=== PATIENT | female | born 1975 | race Caucasian/White ===

== ENCOUNTER 2016-05-10 07:19 | Emergency (ER) | payer OTHER ==
--- NOTE | 2016-05-10 08:27 | ED NURSING NOTES ---
Clinical Report - Nurses [facility] [address] [place] [address] 05/10/2016 7:18 Patient: MANUEL DUGAN TRIAGE Triage time 07:25. Acuity: LEVEL 3. Chief Complaint: ABDOMINAL PAIN and (sneezing). 07:36 05/10/16. Alert. No acute distress. SEPSIS SCREEN: Sepsis Screen. Negative (no infection suspected/documented). Heart rate not greater than 90. Respiratory rate not greater than 20. --07:36 Cathryn White R.N. 07:36 05/10/16. BP: 124/70. HR: 71. RR: 18. O2 saturation: 98%. Temp: 99.3 F. Pain level now 10/05. --07:36 Cathryn White R.N. Weight: 92.9 kg stated. Height/Length: 67 inches Per Patient. BMI: 32.1. --07:30 Cathryn White R.N. Medications CarBAMazepine Oral 200 mg, 3x a day. Ibuprofen Oral 800 mg, PRN. Venlafaxine HCl Oral 225 mg, daily. --07:33 Cathryn White R.N. Effexor XR Oral. --07:33 Cathryn White R.N. Allergies Ancef. Aspirin. Cocaine HCl. Codeine. Inapsine. Iodine. Kefzol. Sulfa Antibiotics. Valium. --07:33 Cathryn White R.N. Medication/allergy information source: the patient. --07:36 Cathryn White R.N. History Arrived by private vehicle. Historian: patient. Primary physician (LISSA jiménez). ( c/o "sneezing a lot" and coughing. States she has been experiencing left side pain since yesterday.). This started yesterday. 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 PAST MEDICAL HX: Last normal menstrual period now. Denies current . SOCIAL HX: Heavy tobacco smoker (cigarette)- 1-2 packs per day. History of drug use: marijuana. No alcohol use. ABUSE ASSESSMENT: Abuse assessment: The patient was asked "Do you feel safe in your home?". No report of abuse. FALL RISK ASSESSMENT: Fall risk assessment completed. No fall risk identified. NUTRITIONAL RISK ASSESSMENT: The nutritional risk assessment revealed no deficiencies. FUNCTIONAL ASSESSMENT: Functional assessment: no impairments noted. LEARNING NEEDS ASSESSMENT: The learning needs assessment revealed no barriers. SKIN INTEGRITY ASSESSMENT: Skin integrity risk assessment completed. No skin integrity risk identified. --07:36 Cathryn White R.N. PROBLEMS: Pilonidal Cyst. Herpes Genitalis. Bronchitis. Lifestyle / Substance Problems. URI. Migraine Headache. Laceration. Last Tetanus. Seizure. Dental Caries. Dental Pain. --07:34 Cathryn White R.N. ADDITIONAL SURGERIES: Cholecystectomy. Cyst in wrist. --07:34 Cathryn White R.N. Interventions ID band on patient. To treatment room. --07:36 Cathryn White R.N. PHYSICAL ASSESSMENT 07:38 05/10/16. Ambulatory to room. GENERAL / NEURO / PSYCH: Oriented X 4. Appears anxious. HEENT: Mucous membranes are pink. RESPIRATORY: Respirations not labored. CVS: Capillary refill less than 2 seconds. GI / : Abdomen soft. ( tenderness to left lateral side of abdomen). SKIN: Skin is warm and dry. --07:38 Cathryn White R.N. NURSING PROGRESS NOTES 07:38 05/10/16. The plan of care for this patient has been created. Patient gowned. Head of bed elevated. Call light placed in reach. Bed placed in lowest position. Brakes of bed on. Patient ready for evaluation- chart flagged. --07:38 Cathryn White R.N. DISPOSITION / DISCHARGE 08:41 05/10/16. Departure time: 0840. Condition at departure: improved and stable. No learning barriers present. Discharge instructions provided and reviewed with the patient. Reviewed medication(s) side effects, precautions, dosing and course information. Prescription(s) given to the patient. Patient verbalized understanding. Written instructions provided in Pakistani. The patient was discharged by the physician. She was discharged home. She left the Emergency Department ambulatory and via private vehicle. Patient driving. --08:41 Cathryn White R.N. 08:40 05/10/16. BP: 127/60. HR: 83. RR: 15. O2 saturation: 97% on room air. Temp: 98.4 F (oral). Pain level now 09/05. --08:41 Cathryn White R.N. Locked/Released at 05/26/2016 9:02 by Saira Ramsey R.N.
--- NOTE | 2016-05-10 08:27 | ED CLINICAL REPORT ---
Clinical Report - Physicians/Mid Levels [facility] [address] [place] [address] 05/10/2016 7:18 Patient: MANUEL DUGAN *This is a preliminary document and is subject to change Time Seen: 07:26; initial patient contact. Arrived- By private vehicle. Historian- patient. HISTORY OF PRESENT ILLNESS Chief Complaint: COUGH. RUNNY NOSE sneezing, eyes irritated. This started yesterday and is still present. It was gradual in onset. The illness is described as mild. The patient has had a cough, nasal congestion, sinus drainage and a nasal discharge. No sputum production, difficulty breathing, chest discomfort or pain or fever. No chills, sore throat, sinus pressure or ear pain. Additional history - No known contact with a sick individual. Similar symptoms previously: None. Recent medical care: Not recently seen/assessed. REVIEW OF SYSTEMS No headache. She has had eye discomfort and hay fever. All systems otherwise negative, except as recorded above. PAST HISTORY Pilonidal Cyst. Herpes Genitalis. Bronchitis. Lifestyle / Substance Problems. URI. Migraine Headache. Laceration. Last Tetanus. Seizure. Dental Caries. Dental Pain. --07:34 Cathryn White R.N. ADDITIONAL SURGERIES: Cholecystectomy. Cyst in wrist. SOCIAL HISTORY Current every day smoker. History of drug use: marijuana. No alcohol use. ADDITIONAL NOTES The nursing notes have been reviewed with agreement regarding the chief complaint, PMH and patient medications and allergies. PHYSICAL EXAM Vital Signs: 05/10/2016 07:36 BP: 124/70. HR: 71. RR: 18. O2 saturation: 98%. Temp: 99.3 F. Have been reviewed as normal. Appearance: Alert. No acute distress. Head: No tenderness to palpation/percussion over the sinuses. Eyes: Mild redness of the right conjunctiva and mild, thin, clear exudate on the right; mild redness of the left conjunctiva and mild, thin, clear exudate on the left. ENT: Mild generalized pharyngeal erythema. Neck: No lymphadenopathy. CVS: Normal heart rate and rhythm. Heart sounds normal. Respiratory: No respiratory distress. Breath sounds normal. Skin: Normal skin color. No rash. Neuro: Oriented X 3. Anthony Nielsen Dr.
--- NOTE | 2016-05-10 08:27 | ED CLINICAL REPORT ---
Clinical Report - Physicians/Mid Levels [facility] [address] [place] [address] 05/10/2016 7:18 Patient: MANUEL DUGAN *This is a preliminary document and is subject to change Time Seen: 07:26; initial patient contact. Arrived- By private vehicle. Historian- patient. HISTORY OF PRESENT ILLNESS Chief Complaint: COUGH. RUNNY NOSE sneezing, eyes irritated. This started yesterday and is still present. It was gradual in onset. The illness is described as mild. The patient has had a cough, nasal congestion, sinus drainage and a nasal discharge. No sputum production, difficulty breathing, chest discomfort or pain or fever. No chills, sore throat, sinus pressure or ear pain. Additional history - No known contact with a sick individual. Similar symptoms previously: None. Recent medical care: Not recently seen/assessed. REVIEW OF SYSTEMS No headache. She has had eye discomfort and hay fever. All systems otherwise negative, except as recorded above. PAST HISTORY Pilonidal Cyst. Herpes Genitalis. Bronchitis. Lifestyle / Substance Problems. URI. Migraine Headache. Laceration. Last Tetanus. Seizure. Dental Caries. Dental Pain. --07:34 Cathryn White R.N. ADDITIONAL SURGERIES: Cholecystectomy. Cyst in wrist. SOCIAL HISTORY Current every day smoker. History of drug use: marijuana. No alcohol use. ADDITIONAL NOTES The nursing notes have been reviewed with agreement regarding the chief complaint, PMH and patient medications and allergies. PHYSICAL EXAM Vital Signs: 05/10/2016 07:36 BP: 124/70. HR: 71. RR: 18. O2 saturation: 98%. Temp: 99.3 F. Have been reviewed as normal. Appearance: Alert. No acute distress. Head: No tenderness to palpation/percussion over the sinuses. Eyes: Mild redness of the right conjunctiva and mild, thin, clear exudate on the right; mild redness of the left conjunctiva and mild, thin, clear exudate on the left. ENT: Mild generalized pharyngeal erythema. Neck: No lymphadenopathy. CVS: Normal heart rate and rhythm. Heart sounds normal. Respiratory: No respiratory distress. Breath sounds normal. Skin: Normal skin color. No rash. Neuro: Oriented X 3. Anthony Nielsen Dr.
--- NOTE | 2016-05-10 08:27 | ED NURSING NOTES ---
Clinical Report - Nurses [facility] [address] [place] [address] 05/10/2016 7:18 Patient: MANUEL DUGAN TRIAGE Triage time 07:25. Acuity: LEVEL 3. Chief Complaint: ABDOMINAL PAIN and (sneezing). 07:36 05/10/16. Alert. No acute distress. SEPSIS SCREEN: Sepsis Screen. Negative (no infection suspected/documented). Heart rate not greater than 90. Respiratory rate not greater than 20. --07:36 Cathryn White R.N. 07:36 05/10/16. BP: 124/70. HR: 71. RR: 18. O2 saturation: 98%. Temp: 99.3 F. Pain level now 10/05. --07:36 Cathryn White R.N. Weight: 92.9 kg stated. Height/Length: 67 inches Per Patient. BMI: 32.1. --07:30 Cathryn White R.N. Medications CarBAMazepine Oral 200 mg, 3x a day. Ibuprofen Oral 800 mg, PRN. Venlafaxine HCl Oral 225 mg, daily. --07:33 Cathryn White R.N. Effexor XR Oral. --07:33 Cathryn White R.N. Allergies Ancef. Aspirin. Cocaine HCl. Codeine. Inapsine. Iodine. Kefzol. Sulfa Antibiotics. Valium. --07:33 Cathryn White R.N. Medication/allergy information source: the patient. --07:36 Cathryn White R.N. History Arrived by private vehicle. Historian: patient. Primary physician (LISSA jiménez). ( c/o "sneezing a lot" and coughing. States she has been experiencing left side pain since yesterday.). This started yesterday. 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 PAST MEDICAL HX: Last normal menstrual period now. Denies current . SOCIAL HX: Heavy tobacco smoker (cigarette)- 1-2 packs per day. History of drug use: marijuana. No alcohol use. ABUSE ASSESSMENT: Abuse assessment: The patient was asked "Do you feel safe in your home?". No report of abuse. FALL RISK ASSESSMENT: Fall risk assessment completed. No fall risk identified. NUTRITIONAL RISK ASSESSMENT: The nutritional risk assessment revealed no deficiencies. FUNCTIONAL ASSESSMENT: Functional assessment: no impairments noted. LEARNING NEEDS ASSESSMENT: The learning needs assessment revealed no barriers. SKIN INTEGRITY ASSESSMENT: Skin integrity risk assessment completed. No skin integrity risk identified. --07:36 Cathryn White R.N. PROBLEMS: Pilonidal Cyst. Herpes Genitalis. Bronchitis. Lifestyle / Substance Problems. URI. Migraine Headache. Laceration. Last Tetanus. Seizure. Dental Caries. Dental Pain. --07:34 Cathryn White R.N. ADDITIONAL SURGERIES: Cholecystectomy. Cyst in wrist. --07:34 Cathryn White R.N. Interventions ID band on patient. To treatment room. --07:36 Cathryn White R.N. PHYSICAL ASSESSMENT 07:38 05/10/16. Ambulatory to room. GENERAL / NEURO / PSYCH: Oriented X 4. Appears anxious. HEENT: Mucous membranes are pink. RESPIRATORY: Respirations not labored. CVS: Capillary refill less than 2 seconds. GI / : Abdomen soft. ( tenderness to left lateral side of abdomen). SKIN: Skin is warm and dry. --07:38 Cathryn White R.N. NURSING PROGRESS NOTES 07:38 05/10/16. The plan of care for this patient has been created. Patient gowned. Head of bed elevated. Call light placed in reach. Bed placed in lowest position. Brakes of bed on. Patient ready for evaluation- chart flagged. --07:38 Cathryn White R.N. DISPOSITION / DISCHARGE 08:41 05/10/16. Departure time: 0840. Condition at departure: improved and stable. No learning barriers present. Discharge instructions provided and reviewed with the patient. Reviewed medication(s) side effects, precautions, dosing and course information. Prescription(s) given to the patient. Patient verbalized understanding. Written instructions provided in Jordanian. The patient was discharged by the physician. She was discharged home. She left the Emergency Department ambulatory and via private vehicle. Patient driving. --08:41 Cathryn White R.N. 08:40 05/10/16. BP: 127/60. HR: 83. RR: 15. O2 saturation: 97% on room air. Temp: 98.4 F (oral). Pain level now 09/05. --08:41 Cathryn White R.N. Locked/Released at 05/26/2016 9:02 by Saira Ramsey R.N.
--- NOTE | 2016-05-26 09:03 | ED MED RECONCILIATION SUMMARY ---
Patient: MANUEL DUGAN Medication Reconciliation Report [facility] VisitID: [id number] [address] [place] [address] 40y, F Registration Date/Time: 05/10/2016 Weight: 92.9 kg Height/Length: 67 in. BMI: 32.1 ALLERGIES: Ancef, Aspirin, Cocaine HCl, Codeine, Inapsine, Iodine, Kefzol, Sulfa Antibiotics, Valium The patient's Home Medications are listed below: CONTINUE TAKING THE FOLLOWING MEDICATIONS: CarBAMazepine Oral 200 mg, 3x a day Effexor XR Oral Ibuprofen Oral 800 mg, PRN Venlafaxine HCl Oral 225 mg, daily The source(s) of the original Home Medication information: patient The following Medications were given to the patient in the Emergency Department: None. The following Medications were prescribed to the patient: Flonase nasal spray: 2 sprays to each nostril daily for allergies. Dispense one (1) unit. No refills. Substitution is permissible -- Anthony Nielsen Dr.
--- NOTE | 2016-05-26 09:03 | ED DISCHARGE INSTRUCTIONS ---
Patient: MANUEL DUGAN General Instructions [facility] VisitID: [id number] [place] [address] 40y, F Registration Date/Time: 05/10/2016 Acute seasonal allergic rhinitis. INSTRUCTIONS Your Current Medications: CONTINUE TAKING THE FOLLOWING MEDICATIONS: CarBAMazepine Oral : 200 mg 3x a day. Effexor XR Oral. Ibuprofen Oral : 800 mg PRN. Venlafaxine HCl Oral : 225 mg daily. Prescription Medications: Flonase nasal spray: 2 sprays to each nostril daily for allergies. Dispense one (1) unit. No refills. Substitution is permissible Follow-up: Follow up with your doctor if not better. Call for an appointment. Screening today revealed the patient's blood pressure to be in the pre-hypertensive range. The patient should follow up with a primary care provider for blood pressure management. ADDITIONAL INFORMATION Nasal Allergy Nasal Allergy, also called Allergic Rhinitis occurs after exposure to pollen, molds, mildew, animal dander (scales from animal skin, hair and feathers), dust, smoke and fumes. (These are called allergens). When pollen causes a nasal allergy it is commonly called Hay Fever. When these particles contact the lining of the nose, eyes, eyelids, sinuses or throat, they cause the cells to release a chemical called histamine. Histamine may cause a watery discharge from the eyes or nose. It may also cause violent sneezing, nasal congestion, itching of the eyes, nose, throat and mouth. Prevention: Nasal allergy cannot be cured but symptoms can be reduced. Avoid or reduce exposure to the allergen when possible, by the following measures: POLLEN Stay indoors on hot windy days during pollen season Keep windows and doors closed Use an air conditioner with an electrostatic filter DUST, MOLD & MILDEW Follow these measures, especially in the bedroom: When cleaning use vacuum waiter/waitress tourist class, oiled mops and damp cloths; dont stir up the dust. Once a week clean the knight, woodwork and floors with a damp mop and vacuum carpets. Once a year clean the bed frame and springs (do this outside). Cover the box springs with plastic. Do not use mattress pads. Remove stuffed chairs and rugs from the bedroom. Discard old moldy books, furniture and bedding. Use synthetic fabrics for furniture, curtains and bedding. Avoid quilts, comforters, and stuffed toys. ANIMAL DANDER Remove all indoor pets (except fish and reptiles). Avoid all contact with furry animals. Avoid down-stuffed pillows and coats. Some persons are also sensitive to wool and should avoid it. OTHER IRRITANTS Do not smoke and avoid the smoke of others. Some persons are sensitive to cosmetic powder, baby powder and powdered laundry detergents. Therefore, these powders should be avoided. Home Care: DECONGESTANT pills and sprays (Sudafed, NeoSynephrine, Afrin), reduce tissue swelling and watery discharge. Overuse of nasal decongestant sprays may make symptoms worse. Do not use these more often than recommended. ANTIHISTAMINES block the release of histamine during the allergic response. Antihistamines are more effective when taken BEFORE symptoms develop. Unless a prescription antihistamine was prescribed, you may take CLARITIN (loratadine). (Claritin is an gaxn-xsf-jyexowr antihistamine that does not cause drowsiness.) STEROID nasal sprays (Beconase, Vancenase, Nasalide) or oral steroids (Prednisone) may also be prescribed for more severe symptoms. These help to reduce the local inflammation which adds to the allergic response. If you have ASTHMA, pollen season may make your asthma symptoms worse. It is important that you use your asthma medicines as directed during this time to prevent or treat attacks. Some persons with asthma have a worsening of their asthma symptoms when taking antihistamines. If you notice this, stop the antihistamines and notify your doctor. Follow Up with your doctor or as directed by our staff if your symptoms are not improving with the treatment advised. Get Prompt Medical Attention if any of the following occur: Facial or sinus pain or colored drainage from the nose Severe headache or ear pain Fever of 100.4F (38C) or higher, or as directed by your healthcare provider Wheezing or trouble breathing (If you already know you have asthma, return if your asthma symptoms do not respond to the usual doses of your medicine) Cough with lots of colored sputum (mucus) Fluticasone Propionate Nasal spray, solution What is this medicine? FLUTICASONE (floo TIK a sone) is a corticosteroid. It helps decrease inflammation in your nose. This medicine is used to treat the symptoms of allergies like sneezing, itching, and runny or stuffy nose. How should I use this medicine? This medicine is for use in the nose. Follow the directions on your prescription label. This medicine works best if used regularly. Do not use more often than directed. Make sure that you are using your nasal spray correctly. Ask you doctor or health care provider if you have any questions. Talk to your electric motor control assembler regarding the use of this medicine in children. While this drug may be prescribed for children as young as 4 years old for selected conditions, precautions do apply. What side effects may I notice from receiving this medicine? Side effects that you should report to your doctor or health childcare provider as soon as possible: allergic reactions like skin rash, itching or hives, swelling of the face, lips, or tongue changes in vision flu-like symptoms white patches or sores in the mouth or nose Side effects that usually do not require medical attention (report to your doctor or health childcare provider if they continue or are bothersome): burning or irritation inside the nose or throat cough headache nosebleed unusual taste or smell What may interact with this medicine? ketoconazole metyrapone some medicines for HIV vaccines What if I miss a dose? If you miss a dose, use it as soon as you remember. If it is almost time for your next dose, use only that dose and continue with your regular schedule. Do not use double or extra doses. Where should I keep my medicine? Keep out of the reach of children. Store at room temperature between 15 and 30 degrees C (59 and 86 degrees F). Throw away any unused medicine after the expiration date. What should I tell my health care provider before I take this medicine? They need to know if you have any of these conditions: infection, like tuberculosis, herpes, or fungal infection recent surgery on nose or sinuses taking corticosteroid by mouth an unusual or allergic reaction to fluticasone, steroids, other medicines, foods, dyes, or preservatives or trying to get breast-feeding What should I watch for while using this medicine? Visit your doctor or health childcare provider for regular checks on your progress. Some symptoms may improve within 12 hours after starting use. Check with your doctor or health childcare provider if there is no improvement in your condition after 3 weeks of use. Do not come in contact with people who have chickenpox or the measles while you are taking this medicine. If you do, call your doctor right away. You have been given the following additional information: Allergic Rhinitis Fluticasone Propionate Nasal spray, solution (Electronically signed by Anthony Nielsen Dr. 05/10/2016 8:31)
--- NOTE | 2016-05-26 09:03 | ED MAR SUMMARY ---
..... Medication Administration Record [facility] [address] [place] [address] Patient: MANUEL DUGAN Visit ID: [id number] 40y, F Weight: 92.9 kg Height/Length: 67 in BMI: 32.1 ALLERGIES: Ancef, Aspirin, Cocaine HCl, Codeine, Inapsine, Iodine, Kefzol, Sulfa Antibiotics, Valium
--- NOTE | 2016-05-26 09:03 | ED MAR SUMMARY ---
..... Medication Administration Record [facility] [address] [place] [address] Patient: MANUEL DUGAN Visit ID: [id number] 40y, F Weight: 92.9 kg Height/Length: 67 in BMI: 32.1 ALLERGIES: Ancef, Aspirin, Cocaine HCl, Codeine, Inapsine, Iodine, Kefzol, Sulfa Antibiotics, Valium
--- NOTE | 2016-05-26 09:03 | ED DISCHARGE INSTRUCTIONS ---
Patient: MANUEL DUGAN General Instructions [facility] VisitID: [id number] [place] [address] 40y, F Registration Date/Time: 05/10/2016 Acute seasonal allergic rhinitis. INSTRUCTIONS Your Current Medications: CONTINUE TAKING THE FOLLOWING MEDICATIONS: CarBAMazepine Oral : 200 mg 3x a day. Effexor XR Oral. Ibuprofen Oral : 800 mg PRN. Venlafaxine HCl Oral : 225 mg daily. Prescription Medications: Flonase nasal spray: 2 sprays to each nostril daily for allergies. Dispense one (1) unit. No refills. Substitution is permissible Follow-up: Follow up with your doctor if not better. Call for an appointment. Screening today revealed the patient's blood pressure to be in the pre-hypertensive range. The patient should follow up with a primary care provider for blood pressure management. ADDITIONAL INFORMATION Nasal Allergy Nasal Allergy, also called Allergic Rhinitis occurs after exposure to pollen, molds, mildew, animal dander (scales from animal skin, hair and feathers), dust, smoke and fumes. (These are called allergens). When pollen causes a nasal allergy it is commonly called Hay Fever. When these particles contact the lining of the nose, eyes, eyelids, sinuses or throat, they cause the cells to release a chemical called histamine. Histamine may cause a watery discharge from the eyes or nose. It may also cause violent sneezing, nasal congestion, itching of the eyes, nose, throat and mouth. Prevention: Nasal allergy cannot be cured but symptoms can be reduced. Avoid or reduce exposure to the allergen when possible, by the following measures: POLLEN Stay indoors on hot windy days during pollen season Keep windows and doors closed Use an air conditioner with an electrostatic filter DUST, MOLD & MILDEW Follow these measures, especially in the bedroom: When cleaning use vacuum raisin washer, oiled mops and damp cloths; dont stir up the dust. Once a week clean the knight, woodwork and floors with a damp mop and vacuum carpets. Once a year clean the bed frame and springs (do this outside). Cover the box springs with plastic. Do not use mattress pads. Remove stuffed chairs and rugs from the bedroom. Discard old moldy books, furniture and bedding. Use synthetic fabrics for furniture, curtains and bedding. Avoid quilts, comforters, and stuffed toys. ANIMAL DANDER Remove all indoor pets (except fish and reptiles). Avoid all contact with furry animals. Avoid down-stuffed pillows and coats. Some persons are also sensitive to wool and should avoid it. OTHER IRRITANTS Do not smoke and avoid the smoke of others. Some persons are sensitive to cosmetic powder, baby powder and powdered laundry detergents. Therefore, these powders should be avoided. Home Care: DECONGESTANT pills and sprays (Sudafed, NeoSynephrine, Afrin), reduce tissue swelling and watery discharge. Overuse of nasal decongestant sprays may make symptoms worse. Do not use these more often than recommended. ANTIHISTAMINES block the release of histamine during the allergic response. Antihistamines are more effective when taken BEFORE symptoms develop. Unless a prescription antihistamine was prescribed, you may take CLARITIN (loratadine). (Claritin is an pdyj-lvs-ntpfahk antihistamine that does not cause drowsiness.) STEROID nasal sprays (Beconase, Vancenase, Nasalide) or oral steroids (Prednisone) may also be prescribed for more severe symptoms. These help to reduce the local inflammation which adds to the allergic response. If you have ASTHMA, pollen season may make your asthma symptoms worse. It is important that you use your asthma medicines as directed during this time to prevent or treat attacks. Some persons with asthma have a worsening of their asthma symptoms when taking antihistamines. If you notice this, stop the antihistamines and notify your doctor. Follow Up with your doctor or as directed by our staff if your symptoms are not improving with the treatment advised. Get Prompt Medical Attention if any of the following occur: Facial or sinus pain or colored drainage from the nose Severe headache or ear pain Fever of 100.4F (38C) or higher, or as directed by your healthcare provider Wheezing or trouble breathing (If you already know you have asthma, return if your asthma symptoms do not respond to the usual doses of your medicine) Cough with lots of colored sputum (mucus) Fluticasone Propionate Nasal spray, solution What is this medicine? FLUTICASONE (floo TIK a sone) is a corticosteroid. It helps decrease inflammation in your nose. This medicine is used to treat the symptoms of allergies like sneezing, itching, and runny or stuffy nose. How should I use this medicine? This medicine is for use in the nose. Follow the directions on your prescription label. This medicine works best if used regularly. Do not use more often than directed. Make sure that you are using your nasal spray correctly. Ask you doctor or health care provider if you have any questions. Talk to your vice president of communications regarding the use of this medicine in children. While this drug may be prescribed for children as young as 4 years old for selected conditions, precautions do apply. What side effects may I notice from receiving this medicine? Side effects that you should report to your doctor or health foster care worker as soon as possible: allergic reactions like skin rash, itching or hives, swelling of the face, lips, or tongue changes in vision flu-like symptoms white patches or sores in the mouth or nose Side effects that usually do not require medical attention (report to your doctor or health foster care worker if they continue or are bothersome): burning or irritation inside the nose or throat cough headache nosebleed unusual taste or smell What may interact with this medicine? ketoconazole metyrapone some medicines for HIV vaccines What if I miss a dose? If you miss a dose, use it as soon as you remember. If it is almost time for your next dose, use only that dose and continue with your regular schedule. Do not use double or extra doses. Where should I keep my medicine? Keep out of the reach of children. Store at room temperature between 15 and 30 degrees C (59 and 86 degrees F). Throw away any unused medicine after the expiration date. What should I tell my health care provider before I take this medicine? They need to know if you have any of these conditions: infection, like tuberculosis, herpes, or fungal infection recent surgery on nose or sinuses taking corticosteroid by mouth an unusual or allergic reaction to fluticasone, steroids, other medicines, foods, dyes, or preservatives or trying to get breast-feeding What should I watch for while using this medicine? Visit your doctor or health foster care worker for regular checks on your progress. Some symptoms may improve within 12 hours after starting use. Check with your doctor or health foster care worker if there is no improvement in your condition after 3 weeks of use. Do not come in contact with people who have chickenpox or the measles while you are taking this medicine. If you do, call your doctor right away. You have been given the following additional information: Allergic Rhinitis Fluticasone Propionate Nasal spray, solution (Electronically signed by Anthony Nielsen Dr. 05/10/2016 8:31)
--- NOTE | 2016-05-26 09:03 | ED MED RECONCILIATION SUMMARY ---
Patient: MANUEL DUGAN Medication Reconciliation Report [facility] VisitID: [id number] [address] [place] [address] 40y, F Registration Date/Time: 05/10/2016 Weight: 92.9 kg Height/Length: 67 in. BMI: 32.1 ALLERGIES: Ancef, Aspirin, Cocaine HCl, Codeine, Inapsine, Iodine, Kefzol, Sulfa Antibiotics, Valium The patient's Home Medications are listed below: CONTINUE TAKING THE FOLLOWING MEDICATIONS: CarBAMazepine Oral 200 mg, 3x a day Effexor XR Oral Ibuprofen Oral 800 mg, PRN Venlafaxine HCl Oral 225 mg, daily The source(s) of the original Home Medication information: patient The following Medications were given to the patient in the Emergency Department: None. The following Medications were prescribed to the patient: Flonase nasal spray: 2 sprays to each nostril daily for allergies. Dispense one (1) unit. No refills. Substitution is permissible -- Anthony Nielsen Dr.
== END 2016-05-10 08:40 | disposition home or self-care (01) ==
LOC: ED SRH 07:19
DX: J30.2 Other seasonal allergic rhinitis (principal); Z72.0 Tobacco use; Z79.899 Other long term (current) drug therapy; Z88.6 Allergy status to analgesic agent; Z88.2 Allergy status to sulfonamides; Z88.5 Allergy status to narcotic agent; Z91.041 Radiographic dye allergy status; Z88.8 Allergy status to other drugs, medicaments and biological substances

== ENCOUNTER 2016-08-23 07:51 | Emergency (ER) | payer OTHER ==
--- NOTE | 2016-08-23 08:09 | ED CLINICAL REPORT ---
Clinical Report - Physicians/Mid Levels [facility] [address] [place] [address] 08/23/2016 7:52 Patient: MANUEL DUGAN Time Seen: 07:58; initial patient contact. Arrived- By private vehicle. Historian- patient. HISTORY OF PRESENT ILLNESS Chief Complaint: PRESCRIPTION REFILL REQUEST- out of medication 3 days. Patient's primary care provider unavailable Effexor. This started about 3 days ago and is still present. It was abrupt in onset. No current or associated symptoms. Similar symptoms previously: None. Recent medical care: Not recently seen/assessed. REVIEW OF SYSTEMS No nausea, vomiting, alteration in mental status, depression or seizure. All systems otherwise negative, except as recorded above. PAST HISTORY Allergic Rhinitis. Pilonidal Cyst. Herpes Genitalis. Bronchitis. Lifestyle / Substance Problems. URI. Migraine Headache. Immunizations. Laceration. Seizure. Dental Caries. Dental Pain. ADDITIONAL SURGERIES: Cholecystectomy. Cyst in wrist. SOCIAL HISTORY Current every day heavy tobacco smoker. History of drug use: marijuana. ADDITIONAL NOTES The nursing notes have been reviewed. PHYSICAL EXAM Vital Signs: 08/23/2016 08:01 BP: 108/50. HR: 72. RR: 16. O2 saturation: 98%. Temp: 97.9 F. Pain level now: 0/10. Have been reviewed. Hypotensive. Heart rate normal. Respiratory rate normal. Temperature normal. Oxygen saturation normal. Appearance: Alert. No acute distress. Eyes: Eyes normal inspection. Skin: Skin warm and dry. Normal skin color. No rash. Neuro: Oriented X 3. PROGRESS AND PROCEDURES Disposition: Discharged home in good condition. Condition: good. 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 Medication refill. INSTRUCTIONS Prescription Medications: Venlafaxine XR 225 mg 1 PO q day Disp #15 No refills. Follow-up: Follow up with your doctor in about two days. Call for an appointment. Screening today revealed the patient's blood pressure to be in the normal range. (Electronically signed by Anthony Nielsen Dr. 08/23/2016 9:26)
--- NOTE | 2016-08-23 08:09 | ED NURSING NOTES ---
Clinical Report - Nurses [facility] [address] [place] [address] 08/23/2016 7:52 [id number] Triage time 08:01. Acuity: LEVEL 5. Chief Complaint: (Ran out on Venlafexine, off x3 days. c/o feeling stressed). SEPSIS SCREEN: Sepsis Screen. Negative (no infection suspected/documented). THELMA COMA SCORE: [place] Coma Scale: 15- eyes open spontaneously (4); best verbal response- oriented x 4 (5); best motor response- obeys commands (6). --08:09 Zach Dolan R.N. 08:01 08/23/16. BP: 108/50 (large adult cuff) taken on the left arm, while sitting. HR: 72. RR: 16. O2 saturation: 98% on room air. Temp: 97.9 F (tympanic). Pain level now: 0/10. --08:09 Zach Dolan R.N. Weight: 99.7 kg stated. --08:03 Zach Dolan R.N.. Height/Length: 67 inches. BMI: 34.5. --08:05 Zach Dolan R.N. Medications CarBAMazepine Oral 200 mg, 3x a day. Venlafaxine HCl Oral 225 mg, daily. --08:03 Zach Dolan R.N. Allergies Ancef. Aspirin. Cocaine HCl. Codeine. Inapsine. Iodine. Kefzol. Sulfa Antibiotics. --08:03 Zach Dolan R.N. Valium. --08:03 Zach Dolan R.N. History Arrived by private vehicle. Historian: patient. 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 SOCIAL HX: Heavy tobacco smoker (cigarette)- 1-2 packs per day. History of occasional drug use: marijuana. No alcohol use. ABUSE ASSESSMENT: No report of abuse. --08:09 Zach Dolan R.N. PROBLEMS: Allergic Rhinitis. Pilonidal Cyst. Herpes Genitalis. Bronchitis. Lifestyle / Substance Problems. URI. Migraine Headache. Immunizations. Laceration. Seizure. Dental Caries. Dental Pain. --08:03 Zach Dolan R.N. ADDITIONAL SURGERIES: Cholecystectomy. Cyst in wrist. --08:03 Zach Dolan R.N. Assessment GENERAL / NEURO / PSYCH: Alert. Oriented X 4. Appears in no acute distress. Patient appears calm and cooperative. ( very slow thought process and verbal responses). --08:09 Zach Dolan R.N. Interventions ID band on patient. To treatment room. --08:09 Zach Dolan R.N. PHYSICAL ASSESSMENT Ambulatory to room. GENERAL / NEURO / PSYCH: Alert. Oriented X 4. Appears in no acute distress. ( slow thought process and verbal responses). HEENT: Pupils equal, round and reactive to light. No facial asymmetry noted. Mucous membranes are pink. RESPIRATORY: Respirations not labored. Chest nontender. Breath sounds within normal limits. CVS: Capillary refill less than 2 seconds. Pulses within normal limits. GI / : Abdomen soft and nontender. SKIN: Skin is warm and dry. Normal skin turgor. --08:11 Zach Dolan R.N. NURSING PROGRESS NOTES Head of bed elevated. Reassurance given. Two patient identifiers checked. Call light placed in reach. Bed placed in lowest position. Brakes of bed on. Patient ready for evaluation- chart flagged. --08:11 Zach Dolan R.N. Locked/Released at 08/23/2016 11:19 by Zach Dolan R.N.
--- NOTE | 2016-08-23 08:09 | ED NURSING NOTES ---
Clinical Report - Nurses [facility] [address] [place] [address] 08/23/2016 7:52 [id number] Triage time 08:01. Acuity: LEVEL 5. Chief Complaint: (Ran out on Venlafexine, off x3 days. c/o feeling stressed). SEPSIS SCREEN: Sepsis Screen. Negative (no infection suspected/documented). THELMA COMA SCORE: [place] Coma Scale: 15- eyes open spontaneously (4); best verbal response- oriented x 4 (5); best motor response- obeys commands (6). --08:09 Zach Dolan R.N. 08:01 08/23/16. BP: 108/50 (large adult cuff) taken on the left arm, while sitting. HR: 72. RR: 16. O2 saturation: 98% on room air. Temp: 97.9 F (tympanic). Pain level now: 0/10. --08:09 Zach Dolan R.N. Weight: 99.7 kg stated. --08:03 Zach Dolan R.N.. Height/Length: 67 inches. BMI: 34.5. --08:05 Zach Dolan R.N. Medications CarBAMazepine Oral 200 mg, 3x a day. Venlafaxine HCl Oral 225 mg, daily. --08:03 Zach Dolan R.N. Allergies Ancef. Aspirin. Cocaine HCl. Codeine. Inapsine. Iodine. Kefzol. Sulfa Antibiotics. --08:03 Zach Dolan R.N. Valium. --08:03 Zach Dolan R.N. History Arrived by private vehicle. Historian: patient. 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 SOCIAL HX: Heavy tobacco smoker (cigarette)- 1-2 packs per day. History of occasional drug use: marijuana. No alcohol use. ABUSE ASSESSMENT: No report of abuse. --08:09 Zach Dolan R.N. PROBLEMS: Allergic Rhinitis. Pilonidal Cyst. Herpes Genitalis. Bronchitis. Lifestyle / Substance Problems. URI. Migraine Headache. Immunizations. Laceration. Seizure. Dental Caries. Dental Pain. --08:03 Zach Dolan R.N. ADDITIONAL SURGERIES: Cholecystectomy. Cyst in wrist. --08:03 Zach Dolan R.N. Assessment GENERAL / NEURO / PSYCH: Alert. Oriented X 4. Appears in no acute distress. Patient appears calm and cooperative. ( very slow thought process and verbal responses). --08:09 Zach Dolan R.N. Interventions ID band on patient. To treatment room. --08:09 Zach Dolan R.N. PHYSICAL ASSESSMENT Ambulatory to room. GENERAL / NEURO / PSYCH: Alert. Oriented X 4. Appears in no acute distress. ( slow thought process and verbal responses). HEENT: Pupils equal, round and reactive to light. No facial asymmetry noted. Mucous membranes are pink. RESPIRATORY: Respirations not labored. Chest nontender. Breath sounds within normal limits. CVS: Capillary refill less than 2 seconds. Pulses within normal limits. GI / : Abdomen soft and nontender. SKIN: Skin is warm and dry. Normal skin turgor. --08:11 Zach Dolan R.N. NURSING PROGRESS NOTES Head of bed elevated. Reassurance given. Two patient identifiers checked. Call light placed in reach. Bed placed in lowest position. Brakes of bed on. Patient ready for evaluation- chart flagged. --08:11 Zach Dolan R.N. Locked/Released at 08/23/2016 11:19 by Zach Dolan R.N.
--- NOTE | 2016-08-23 08:09 | ED CLINICAL REPORT ---
Clinical Report - Physicians/Mid Levels [facility] [address] [place] [address] 08/23/2016 7:52 Patient: MANUEL DUGAN Time Seen: 07:58; initial patient contact. Arrived- By private vehicle. Historian- patient. HISTORY OF PRESENT ILLNESS Chief Complaint: PRESCRIPTION REFILL REQUEST- out of medication 3 days. Patient's primary care provider unavailable Effexor. This started about 3 days ago and is still present. It was abrupt in onset. No current or associated symptoms. Similar symptoms previously: None. Recent medical care: Not recently seen/assessed. REVIEW OF SYSTEMS No nausea, vomiting, alteration in mental status, depression or seizure. All systems otherwise negative, except as recorded above. PAST HISTORY Allergic Rhinitis. Pilonidal Cyst. Herpes Genitalis. Bronchitis. Lifestyle / Substance Problems. URI. Migraine Headache. Immunizations. Laceration. Seizure. Dental Caries. Dental Pain. ADDITIONAL SURGERIES: Cholecystectomy. Cyst in wrist. SOCIAL HISTORY Current every day heavy tobacco smoker. History of drug use: marijuana. ADDITIONAL NOTES The nursing notes have been reviewed. PHYSICAL EXAM Vital Signs: 08/23/2016 08:01 BP: 108/50. HR: 72. RR: 16. O2 saturation: 98%. Temp: 97.9 F. Pain level now: 0/10. Have been reviewed. Hypotensive. Heart rate normal. Respiratory rate normal. Temperature normal. Oxygen saturation normal. Appearance: Alert. No acute distress. Eyes: Eyes normal inspection. Skin: Skin warm and dry. Normal skin color. No rash. Neuro: Oriented X 3. PROGRESS AND PROCEDURES Disposition: Discharged home in good condition. Condition: good. 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 Medication refill. INSTRUCTIONS Prescription Medications: Venlafaxine XR 225 mg 1 PO q day Disp #15 No refills. Follow-up: Follow up with your doctor in about two days. Call for an appointment. Screening today revealed the patient's blood pressure to be in the normal range. (Electronically signed by Anthony Nielsen Dr. 08/23/2016 9:26)
--- NOTE | 2016-08-23 11:19 | ED MAR SUMMARY ---
..... Medication Administration Record [facility] [address] [place], [place] [id number] Patient: MANUEL DUGAN Visit ID: [id number] 41y, F Weight: 99.7 kg Height/Length: 67 in BMI: 34.5 ALLERGIES: Ancef, Aspirin, Cocaine HCl, Codeine, Inapsine, Iodine, Kefzol, Sulfa Antibiotics, Valium
--- NOTE | 2016-08-23 11:19 | ED DISCHARGE INSTRUCTIONS ---
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 Medication refill. INSTRUCTIONS Prescription Medications: Venlafaxine XR 225 mg 1 PO q day Disp #15 No refills. Follow-up: Follow up with your doctor in about two days. Call for an appointment. Screening today revealed the patient's blood pressure to be in the normal range. (Electronically signed by Anthony Nielsen Dr. 08/23/2016 9:26)
--- NOTE | 2016-08-23 11:19 | ED MED RECONCILIATION SUMMARY ---
Patient: MANUEL DUGAN Medication Reconciliation Report [facility] VisitID: [id number] [address] [place] [address] 41y, F Registration Date/Time: 08/23/2016 Weight: 99.7 kg Height/Length: 67 in. BMI: 34.5 ALLERGIES: Ancef, Aspirin, Cocaine HCl, Codeine, Inapsine, Iodine, Kefzol, Sulfa Antibiotics, Valium The patient's Home Medications are listed below: THE FOLLOWING MEDICATIONS NEED TO BE RECONCILED: CarBAMazepine Oral 200 mg, 3x a day Venlafaxine HCl Oral 225 mg, daily The source(s) of the original Home Medication information: Not obtained. The following Medications were given to the patient in the Emergency Department: None. The following Medications were prescribed to the patient: Venlafaxine XR 225 mg1 PO q dayDisp #15No refills. -- Anthony Nielsen Dr.
--- NOTE | 2016-08-23 11:19 | ED MAR SUMMARY ---
..... Medication Administration Record [facility] [address] [place], [place] [id number] Patient: MANUEL DUGAN Visit ID: [id number] 41y, F Weight: 99.7 kg Height/Length: 67 in BMI: 34.5 ALLERGIES: Ancef, Aspirin, Cocaine HCl, Codeine, Inapsine, Iodine, Kefzol, Sulfa Antibiotics, Valium
--- NOTE | 2016-08-23 11:19 | ED DISCHARGE INSTRUCTIONS ---
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 Medication refill. INSTRUCTIONS Prescription Medications: Venlafaxine XR 225 mg 1 PO q day Disp #15 No refills. Follow-up: Follow up with your doctor in about two days. Call for an appointment. Screening today revealed the patient's blood pressure to be in the normal range. (Electronically signed by Anthony Nielsen Dr. 08/23/2016 9:26)
--- NOTE | 2016-08-23 11:19 | ED MED RECONCILIATION SUMMARY ---
Patient: MANUEL DUGAN Medication Reconciliation Report [facility] VisitID: [id number] [address] [place] [address] 41y, F Registration Date/Time: 08/23/2016 Weight: 99.7 kg Height/Length: 67 in. BMI: 34.5 ALLERGIES: Ancef, Aspirin, Cocaine HCl, Codeine, Inapsine, Iodine, Kefzol, Sulfa Antibiotics, Valium The patient's Home Medications are listed below: THE FOLLOWING MEDICATIONS NEED TO BE RECONCILED: CarBAMazepine Oral 200 mg, 3x a day Venlafaxine HCl Oral 225 mg, daily The source(s) of the original Home Medication information: Not obtained. The following Medications were given to the patient in the Emergency Department: None. The following Medications were prescribed to the patient: Venlafaxine XR 225 mg1 PO q dayDisp #15No refills. -- Anthony Nielsen Dr.
== END 2016-08-23 08:16 | disposition home or self-care (01) ==
LOC: ED SRH 07:51
DX: F32.9 Major depressive disorder, single episode, unspecified (principal); Z76.0 Encounter for issue of repeat prescription; F17.210 Nicotine dependence, cigarettes, uncomplicated; Z79.899 Other long term (current) drug therapy; Z88.1 Allergy status to other antibiotic agents; Z88.2 Allergy status to sulfonamides; Z88.5 Allergy status to narcotic agent; Z88.8 Allergy status to other drugs, medicaments and biological substances